=== PATIENT | male | born 1990 | race Caucasian/White ===

== ENCOUNTER 2019-01-18 21:13 | Emergency (ER) | payer MEDICAID ==
[~2019-01-18] VITALS: Ht 190.5 cm; Wt 78.9 kg
[2019-01-18] MEDS ORDERED: BUSP5TAB3 PO (21:23)
--- NOTE | 2019-01-18 21:55 | NUR ---
PATIENT OUT OF UNIT FOR CT SCAN VIA WHEELCHAIR
[2019-01-18 22:05] LABS: BASOPHILS # (AUTO) 0.1 K/uL (0.0-8.0); BASOPHILS % (AUTO) 0.8 % (0.0-2.0); EOSINOPHILS # (AUTO) 0.3 K/uL (0.0-0.7); HEMATOCRIT 42.5 % (36.7-47.1); HEMOGLOBIN 14.3 g/dL (12.5-16.3); LYMPHOCYTES # (AUTO) 2.6 K/uL (20.0-40.0); LYMPHOCYTES % (AUTO) 41.3 % (20.5-51.5); MEAN CORPUSCULAR HEMOGLOBIN 28.5 uug (23.8-33.4); MEAN CORPUSCULAR HGB CONC 34 g/dL (32.5-36.3); MEAN CORPUSCULAR VOLUME 84.6 fL (73.0-96.2); MONOCYTES # (AUTO) 0.3 K/uL (2.0-10.0); NEUTROPHILS # (AUTO) 3.1 K/uL (1.8-8.9); NEUTROPHILS % (AUTO) 48.9 % (38.5-71.5); PLATELET COUNT (AUTO) 197 K/uL (152-348); RED BLOOD CELL COUNT(AUTO) 5.03 MIL/uL (4.06-5.63); WHITE BLOOD COUNT (AUTO) 6.4 K/uL (3.6-10.2)
--- NOTE | 2019-01-18 22:05 | NUR ---
PATIENT BACK FROM CT SCAN WITH NO DISTRESS NOTED
[2019-01-18 22:07] LABS: *BILIRUBIN,URIN NEGATIVE (NEGATIVE); *BLOOD, URINE NEGATIVE (NEGATIVE); *CLARITY,URINE CLEAR (CLEAR); *COLOR,URINE YELLOW (YELLOW); *KETONES,URINE 1+ (NEGATIVE); LEUKOCYTE ESTERASE ,URINE NEGATIVE (NEGATIVE); NITRITE, URINE NEGATIVE (NEGATIVE); UGLUCOSE NEGATIVE (NEGATIVE)
[2019-01-18 22:13] LABS: CREATININE 1.1 mg/dL (0.6-1.3); POTASSIUM 4.2 mmol/L (3.5-5.1)
[2019-01-18 22:13] LABS: MUCUS,URINE MANY /LPF (0-FEW); WBC,URINE 0-3 /HPF (0-3)
[2019-01-18 22:18] LABS: BILIRUBIN,DIRECT 0.1 mg/dL (0.0-0.2); BILIRUBIN,TOTAL 0.6 mg/dL (0.2-1.0); TOTAL PROTEIN, SERUM 7.9 g/dL (6.4-8.2)
[2019-01-18] MEDS ORDERED: MAGNESIUM HYDROXIDE 30 ML LIQUID UDC PO ONE (23:00)
[2019-01-18] MEDS ORDERED: MAGNESIUM CITRATE 296 ML BOTTLE PO ONE (23:00)
[2019-01-18] MEDS ORDERED: MAGNESIUM HYDROXIDE 30 ML LIQUID UDC ONE ×2 (23:03→23:04)
[2019-01-18] MEDS ORDERED: MAGNESIUM CITRATE 296 ML BOTTLE ONE (23:03)
--- NOTE | 2019-01-18 23:07 | NUR ---
Patient discharged to home in stable conditon. Written and verbal after care instructions given. Patient verbalizes understanding of instructions. WALKED OUT OF ER WITH NO DISTRESS NOTED
[2019-01-18 23:08] VITALS: BP 108/76
== END 2019-01-18 23:09 | disposition home or self-care (01) ==
LOC: ER 21:13
DX: B34.9 Viral infection, unspecified (principal); Z79.899 Other long term (current) drug therapy
CPT/HCPCS: 36415; 70450; 83690; 85025; 87400; A4663

== ENCOUNTER 2024-03-05 17:12 | Emergency (ER) | payer MEDICAID ==
[~2024-03-05] VITALS: Ht 172.7 cm; Wt 68.0 kg
[~2024-03-05 17:12] MED LIST: BUSP5TAB3 PO
[2024-03-05] MEDS ORDERED: PAXLOVID PO (18:18)
[2024-03-05] MEDS ORDERED: PROM118S5 PO (18:18)
[2024-03-05] MEDS ORDERED: AZIT500T PO (18:18)
[2024-03-05] MEDS ORDERED: PRED50TA PO (18:18)
[2024-03-05] MEDS ORDERED: GUAIFENESIN/DEXTROMETHORPHAN 5 ML UDC ONE (18:31)
[2024-03-05] MEDS ORDERED: AZITHROMYCIN 250 MG TABLET ONE (18:32)
[2024-03-05] MEDS ORDERED: predniSONE 50 MG TABLET ONE (18:32)
[2024-03-05] MEDS: IV NORMAL SALINE 1000 ML BAG IV ONE (18:34)
[2024-03-05] MEDS: predniSONE 50 MG TABLET PO ONE (18:34)
[2024-03-05] MEDS: GUAIFENESIN/DEXTROMETHORPHAN 5 ML UDC PO ONE (18:34)
[2024-03-05] MEDS: AZITHROMYCIN 250 MG TABLET PO ONE (18:34)
[2024-03-05] MEDS: THIAMINE HCL 200 MG/2 ML VIAL IV ONE (18:36)
[2024-03-05] MEDS ORDERED: THIAMINE HCL 200 MG/2 ML VIAL ONE (18:36)
[2024-03-05 18:54] LABS: BASOPHILS % (AUTO) 0.6 % (0.0-2.0); DIFFERENTIAL COMMENT 0; EOSINOPHILS # (AUTO) 0.2 K/uL (0.0-0.7); EOSINOPHILS % (AUTO) 3.3 % (0.0-7.0); HEMATOCRIT 43.4 % (36.7-47.1); HEMOGLOBIN 14.3 g/dL (12.5-16.3); LYMPHOCYTES # (AUTO) 0.7 K/uL (0.8-4.8); LYMPHOCYTES % (AUTO) 11.3 % (20.5-51.5); MEAN CORPUSCULAR HGB CONC 33 g/dL (32.5-36.3); MONOCYTES # (AUTO) 0.3 K/uL (0.1-1.30); MONOCYTES % (AUTO) 5.3 % (0.0-11.0); NEUTROPHILS # (AUTO) 4.7 K/uL (1.8-8.9); NEUTROPHILS % (AUTO) 79.5 % (38.5-71.5); PLATELET COUNT (AUTO) 193 K/uL (152-348); RED CELL DISTRIBUTION WIDTH 12.7 % (12.1-16.2); WHITE BLOOD COUNT (AUTO) 5.9 K/uL (3.6-10.2)
[2024-03-05 19:00] LABS: CALCIUM 8.9 mg/dL (8.5-10.1); CREATININE 0.9 mg/dL (0.6-1.3)
[2024-03-05 19:11] LABS: ALBUMIN 3.9 g/dL (3.4-5.0); BILIRUBIN,DIRECT 0.1 mg/dL (0.0-0.2); BILIRUBIN,TOTAL 0.5 mg/dL (0.2-1.0); TOTAL PROTEIN, SERUM 8.2 g/dL (6.4-8.2)
[2024-03-05 19:51] VITALS: BP 122/72; TEMP 97.9; O2SAT 98
== END 2024-03-05 19:40 | disposition home or self-care (01) ==
LOC: ER 17:13
DX: H66.92 Otitis media, unspecified, left ear (principal); Z98.890 Other specified postprocedural states; Z79.1 Long term (current) use of non-steroidal anti-inflammatories (NSAID); Z20.822 Contact with and (suspected) exposure to COVID-19
CPT/HCPCS: 99284; 96374; 96361; 87426; 80076; 80048; 85025; 36415; J7512; J3411; J7040; A4606; A4663; Q0144